=== PATIENT | male | born 1940 ===

== ENCOUNTER 2023-06-25 04:30 | Inpatient (IN) | payer MEDICARE ==
[2023-06-25] VITALS (12 sets, daily range): BP systolic 78–133; BP diastolic 54–92
[~2023-06-25] VITALS: Ht 180.3 cm; Wt 74.8 kg
[2023-06-25 05:23] LABS: BASOPHILS ABSOLUTE AUTO 0.04 K/mm3 (0.00-0.23); BASOPHILS PERCENT AUTO 0 % (0-2); EOSINOPHILS ABSOLUTE AUTO 0.02 K/mm3 (0.00-0.68); EOSINOPHILS PERCENT AUTO 0 % (0-6); Hematocrit 49.5 % (37.0-53.0); Hemoglobin 16.5 g/dL (13.5-17.5); IMMATURE GRAN PERCENT AUTO 1 % (0-1); LYMPHOCYTES ABSOLUTE AUTO 1.16 K/mm3 (0.84-5.20); LYMPHOCYTES PERCENT AUTO 12 % (21-46); MONOCYTES ABSOLUTE AUTO 0.26 K/mm3 (0.16-1.47); MONOCYTES PERCENT AUTO 3 % (4-13); Mean Corpuscular HGB Conc 33.3 g/dL (31.5-36.5); Mean Corpuscular Volume 96 fL (80-100); Mean Platelet Volume 10.8 fL (9.1-12.4); NEUTROPHILS PERCENT AUTO 84 % (41-73); Platelet Count 243 K/mm3 (150-400); RDW Coefficient Variation 13.7 % (11.7-14.2); RDW Standard Deviation 48.5 fL (35.1-46.3); Red Blood Cell Count 5.16 M/mm3 (4.30-5.90); White Blood Cell Count 9.88 K/mm3 (4.00-11.30)
[2023-06-25 05:52] LABS: Albumin, Blood 4.5 g/dL (3.4-5.0); Albumin/Globulin Ratio 1.2 (0.8-1.8); Bilirubin, Total 0.5 mg/dL (0.1-1.0); Bun/Creatinine Ratio 19.4 (12.0-20.0); Calcium, Blood 9.7 mg/dL (8.5-10.1); Creatinine, Blood 1.03 mg/dL (0.60-1.20); Globulin, Blood 3.7 g/dL (2.2-4.0); Potassium, Blood 3.4 mmol/L (3.5-5.5); Total Protein, Blood 8.2 g/dL (6.4-8.2)
[2023-06-25] MEDS ORDERED: TAMSULOSIN HCL0.4 M1 PO (06:47)
[2023-06-25 07:17] LABS: International Normalized Ratio 1.14; Prothrombin Time Results 11.9 Sec (9.7-11.5)
--- NOTE | 2023-06-25 07:18 | NUR ---
PT TO DAY SURGERY FROM ER. PT ON 15L NRB, NG TO LEFT NARES SUCTIONING BROWNISH LIQUID. PT ABD RIGID AND DISTENDED. PT ABLE TO ANSWER QUESTIONS, ALERT AND RESPONSIVE PT PRESENT AT BEDSIDED. NS INFUSING WIDE OPEN. VANCOMYCIN INFUSING VIA PUMP. PT CONTINUES CARDIAC MONITORING. CHARGE NURSE INFORMED OF PATIET CURRENT CONDITION.
--- NOTE | 2023-06-25 07:35 | NUR ---
REPEAT EKG COMPLETED. PT C/O NEEDING TO VOID. URINAL PROVIDED. PT UNABLE TO VOID. ITEMS OBTAINED TO PLACE KIM CATH AFTER SPEAKING WITH DR. MASON. INSTRUCTED TO WAIT UNTIL PT WENT TO SURGERY BY REJI FONTANEZ TO PLACE KIM. SUBHA FONTANEZ IN ROOM TO PLACE PT ON LEVOPHED DRIP. PT MENTATION UNCHANGED. LS DIMINISHED BUT CLEAR.
--- NOTE | 2023-06-25 07:41 | NUR ---
PT HAS 20G IV - R AC HAS VANCO INFUSING. LEFT FOREARM WITH A 20G WITH LR TKO AND LEVOPHED DRIP INFUSING. PT DENIES NEED FOR ANYTHING AT THIS TIME.
--- NOTE | 2023-06-25 07:44 | NUR ---
PT WAS HOOKED UP TO CONTINUOUS SUCTION ON ARRIVAL TO DAY SURGERY. BROWNISH LIQUID ON SUCTION TUBING ONLY.
[2023-06-25 08:52] LABS: PCO2 Arterial 69.3 mmHg (35-45); PO2 Arterial 138 mmHg (80-100)
[2023-06-25 09:19] LABS: PCO2 Arterial 55.3 mmHg (35-45); PO2 Arterial 240 mmHg (80-100)
[2023-06-25 09:20] LABS: pH Blood Arterial 7.05 (7.35-7.45)
[2023-06-25 09:25] LABS: Hematocrit 28.8 % (37.0-53.0); Hemoglobin 8.8 g/dL (13.5-17.5); Mean Platelet Volume 10.7 fL (9.1-12.4); Platelet Count 123 K/mm3 (150-400)
[2023-06-25 10:16] LABS: PCO2 Arterial 48.9 mmHg (35-45); PO2 Arterial 352 mmHg (80-100)
[2023-06-25 10:55] LABS: International Normalized Ratio 1.49
[2023-06-25 11:05] LABS: Prothrombin Time Results 15.3 Sec (9.7-11.5)
--- NOTE | 2023-06-25 11:35 | NUR ---
PT ARRIVED TO ICU 4 FROM OR AT 1050. INTUBATED, A-LINE TO L RADIAL WITH ARM BOARD IN PLACE. ON LEVOPHED AT 8MCG/MIN PERIPHERALLY. NO CENTRAL LINE, PICC LINE TO BE PLACED WHEN RN AVAILABLE. DR. MASON CONSULTED DR. KNOWLES IN PERSON. PT HAS WOUND VAC TO MID ABD WITH GOOD SUCTION. OUTPUT IS SEROUS. NG TUBE CLAMPED AND SECURED. PT RECEIVED PARALYTIC IN OR, NO SPONT MOVEMENT OF EXTREMITIES YET. FAMILY UPDATED AND AT BEDSIDE.
[2023-06-25 12:35] LABS: PCO2 Arterial 43.5 mmHg (35-45); PO2 Arterial 133 mmHg (80-100)
[2023-06-25 12:36] LABS: pH Blood Arterial 7.25 (7.35-7.45)
--- NOTE | 2023-06-25 13:10 | NUR ---
PICC LINE WAS PLACED. ALL PRESSORS MOVED TO CENTRAL LINE. VASOPRESSIN ADDED AND PROPOFOL STARTED. PT IS NODDING YES AND NO TO FAMILY'S QUESTIONS AND LIFTING ARMS UP OFF OF BED.
--- NOTE | 2023-06-25 13:48 | NUR ---
Pt. is intubated, somnilent and non responsive. Pts. daughter is present. Facilitate a life review with the daughter. Consider matters of urbano and belief as it reflects the Pt. Daughter expects spouse to return around dinner time. Will remain availble to the Pt. and family.
[2023-06-25 14:15] LABS: BASOPHILS ABSOLUTE AUTO 0.01 K/mm3 (0.00-0.23); BASOPHILS PERCENT AUTO 0 % (0-2); EOSINOPHILS PERCENT AUTO 0 % (0-6); Hematocrit 35.5 % (37.0-53.0); IMMATURE GRAN ABSOLUTE AUTO 0.09 K/mm3 (0.00-0.10); IMMATURE GRAN PERCENT AUTO 1 % (0-1); LYMPHOCYTES PERCENT AUTO 4 % (21-46); MONOCYTES PERCENT AUTO 4 % (4-13); Mean Corpuscular HGB 29.9 pg (26.0-34.0); Mean Corpuscular HGB Conc 33.8 g/dL (31.5-36.5); Mean Platelet Volume 10.3 fL (9.1-12.4); NEUTROPHILS ABSOLUTE AUTO 9.22 K/mm3 (1.96-9.15); NEUTROPHILS PERCENT AUTO 91 % (41-73); Platelet Count 212 K/mm3 (150-400); RDW Coefficient Variation 15.4 % (11.7-14.2); RDW Standard Deviation 48.8 fL (35.1-46.3); Red Blood Cell Count 4.01 M/mm3 (4.30-5.90); White Blood Cell Count 10.12 K/mm3 (4.00-11.30)
--- NOTE | 2023-06-25 14:15 | NUR ---
Spoke with ICU Clinical Coordinator Aleja and discussed case. Family may benefit from supportive visit. Met with family in ICU waiting room. Reviewed plan of care and answered questions. Offered supportive visit and allowed family to express concerns and fears. Continued supportive visit. Family requesting assistance with getting Pt started on OHP as Pt and spouse do not have any income and are concerned about medical bills. Instructed request will be relayed to RN Product Design Manager. Family expresses appreciation and report no other concerns at this time. Spoke with RN Product Design Manager Ruben and relayed families request. Palliative Care will remain available
[2023-06-25 14:22] LABS: Mean Corpuscular Volume 89 fL (80-100)
[2023-06-25 14:38] LABS: Magnesium, Blood 1.4 mg/dL (1.6-2.4)
[2023-06-25 14:58] LABS: Bilirubin, Total 0.6 mg/dL (0.1-1.0); Bun/Creatinine Ratio 20.3 (12.0-20.0); Calcium, Blood 8.2 mg/dL (8.5-10.1); Creatinine, Blood 0.84 mg/dL (0.60-1.20); Phosphorus, Blood 2.5 mg/dL (2.5-4.9); Potassium, Blood 4.2 mmol/L (3.5-5.5)
[2023-06-25 15:02] LABS: Albumin, Blood 2.3 g/dL (3.4-5.0); Globulin, Blood 2.2 g/dL (2.2-4.0); Total Protein, Blood 4.5 g/dL (6.4-8.2)
--- NOTE | 2023-06-25 17:03 | NUR ---
PT IS ABLE TO WAKE TO VOICE. APPROPRIATELY NODS HEAD YES AND NO TO QUESTIONS. PT ADAMANTLY REFUSES TO BE SWABBED FOR COVID. ON LEVOPHED AND VASOPRESSIN, LOW DOSE PROPOFOL FOR SEDATION. ABLE TO MOVE ARMS OFF OF BED BUT IS REDIRECTABLE AND NOT REACHING FOR LINES. FAMILY HAS STAYED AT BEDSIDE SINCE ADMIT AND HELPING KEEP PT INFORMED. WOUND VAC TO MID ABD THAT HAS GOOD SEAL AND SUCTION. SEROUS OUTPUT. FENTANYL FOR ABD PAIN.
--- NOTE | 2023-06-25 19:15 | NUR ---
ASSUMPTION OF CARE: RECEIVED REPORT FROM YANNA FONTANEZ. PT INTUBATED AND SEDATED. RESPONDS TO VERBAL STIMULI. ABLE TO FOLLOW COMMANDS AND SHAKE HEAD YES AND NO TO QUESTIONS. VENT SETTINGS AC/VC 20/450/5/70%. SPO2 >90%. LUNG SOUNDS CLEAR. PROPOFOL INFUSING AT 25 MCG/MIN. ARTERIAL LINE TO LEFT RADIAL, NOT SUTURED IN PLACE. TAPED DOWN AND ARMBOARD IN PLACE. LEVOPHED INFUSING AT 14 MCG/MIN, TITRATED TO MAINTAIN MAP >65. VASO INFUSING AT 0.04 UNITS/MIN. CARDIAC MONITORING IN PLACE, SR WITH RATE 60'S-70'S. NG TUBE IN PLACE, CLAMPED AT THIS TIME. WOUND VAC IN PLACE TO MID ABDOMEN DRAINING SEROSANGINOUS FLUID. KIM IN PLACE, FOR CRITICAL I&O, PATENT AND DRAINING YELLOW URINE TO GRAVITY. DAUGHTER AT BEDSIDE, UPDATED TO PLAN OF CARE. PT AWAITING TRANSFER TO [facility].
--- NOTE | 2023-06-25 23:06 | NUR ---
TRANSFER TO [facility] CALLED WITH A ROOM FOR PT. PLANS MADE WITH [employer] TO FLY PT UP TO [place]. REPORT GIVEN TO TARI CHARGE NURSE AT [facility]. PT LEFT WITH PROPOFOL INFUSING AT 25MCG/KG/MIN; LEVOHPED INFUSING AT 14MCG/MIN; VASOPRESSIN INFUSING AT 0.04UNITS/MIN; LR INFUSING AT 150ML/HR. ART LINE IN PLACE AND PATENT; PICC TO ELIZABET IN PLACE AND PATENT. WOUND VAC SENT WITH PT. PT LEFT WITH [facility]SPORT AT 2300. CALL MADE TO [facility] TO GIVE ETA. PT AND DAUGHTER STATED THAT THEY WERE HEADED HOME AND WOULD DRIVE UP TO [place] TOMORROW.
== END 2023-06-25 23:00 | disposition short-term general hospital (02) | DRG 853 ==
LOC: ER 04:30 → ICUE 06:58 → SURS 06:58 → ICUE 07:02
PROVIDERS: Anesthesiology; Emergency Medicine; Internal Medicine Critical Care Medicine; Surgery; ADMIT Internal Medicine
PROC: 0BH17EZ Insertion of Endotracheal Airway into Trachea, Via Natural or Artificial Opening (ICD-10-PCS; 2023-06-25)
PROC: 30233N1 Transfusion of Nonautologous Red Blood Cells into Peripheral Vein, Percutaneous Approach (ICD-10-PCS; 2023-06-25)
PROC: 30233P1 Transfusion of Nonautologous Frozen Red Cells into Peripheral Vein, Percutaneous Approach (ICD-10-PCS; 2023-06-25)
PROC: 3E033XZ Introduction of Vasopressor into Peripheral Vein, Percutaneous Approach (ICD-10-PCS; 2023-06-25)
PROC: 4A133R1 Monitoring of Arterial Saturation, Peripheral, Percutaneous Approach (ICD-10-PCS; 2023-06-25)
PROC: 02HV33Z Insertion of Infusion Device into Superior Vena Cava, Percutaneous Approach (ICD-10-PCS; 2023-06-25)
PROC: 0DB60ZZ Excision of Stomach, Open Approach (ICD-10-PCS; principal; 2023-06-25 07:30)
PROC: 07BP0ZZ Excision of Spleen, Open Approach (ICD-10-PCS; 2023-06-25 07:30)
PROC: 5A1935Z Respiratory Ventilation, Less than 24 Consecutive Hours (ICD-10-PCS; 2023-06-25 07:30)
DX: A41.9 Sepsis, unspecified organism (principal); J96.01 Acute respiratory failure with hypoxia; K63.1 Perforation of intestine (nontraumatic); K65.0 Generalized (acute) peritonitis; R65.21 Severe sepsis with septic shock; K66.8 Other specified disorders of peritoneum; E86.0 Dehydration; D73.5 Infarction of spleen; N40.0 Benign prostatic hyperplasia without lower urinary tract symptoms; Z98.890 Other specified postprocedural states; Z79.899 Other long term (current) drug therapy; Z90.49 Acquired absence of other specified parts of digestive tract; Q43.0 Meckel's diverticulum (displaced) (hypertrophic); Z87.891 Personal history of nicotine dependence
CPT/HCPCS: 36415; 36430; 36569; 71045; 74018; 74177; 80053; 82310; 82330; 82803; 83605; 83690; 83735; 84100; 85014; 85018; 85025; 85049; 85384; 85610; 85730; 86850; 86900; 86901; 86920; 87040; 87070; 87205; 88305; 88307; 88312; 93005; 93010; 94002; 96365-59; 96375-59; 99285-25; C1751; J0696; J1644; J2001; J2250; J2543; J2704; J3010; J3370; J3475; J7030; J7050; J7060; J7120; P9016; P9037; P9059; Q9967

== ENCOUNTER → 2023-08-19 | Outpatient (CLI) | payer MEDICARE ==
[~2023-08-19] MED LIST: TAMSULOSIN HCL0.4 M1 PO
== END ==
LOC: LAB 09:41 → LAB SHORT 09:41
DX: D04.39 Carcinoma in situ of skin of other parts of face (principal); C44.519 Basal cell carcinoma of skin of other part of trunk
CPT/HCPCS: 88305

== ENCOUNTER → 2023-09-22 | Outpatient (CLI) | payer OTHER | LOC: LAB 08:41 → LAB SHORT 08:41 | DX: C44.519 Basal cell carcinoma of skin of other part of trunk (principal) | CPT/HCPCS: 88305 ==

== ENCOUNTER → 2024-03-07 | Outpatient (CLI) | payer OTHER ==
[2024-03-07 17:23] LABS: Source, Urine Clean Catch
[2024-03-07 17:40] LABS: Bacteria Not Seen /hpf; Red Blood Cells, Urine TNTC /hpf (0-2); Squamous Epithelial Cells Not Seen /hpf (Few)
[2024-03-07 17:41] LABS: Amorphous Heavy (0-Heavy)
== END ==
LOC: LAB 16:36 → LAB SHORT 17:21
PROVIDERS: Physician Assistant
DX: R31.9 Hematuria, unspecified (principal)
CPT/HCPCS: 81015

== ENCOUNTER → 2024-03-07 | Outpatient (CLI) | payer OTHER ==
[2024-03-07 18:17] LABS: BASOPHILS ABSOLUTE AUTO 0.05 K/mm3 (0.00-0.23); BASOPHILS PERCENT AUTO 1 % (0-2); EOSINOPHILS ABSOLUTE AUTO 0.11 K/mm3 (0.00-0.68); EOSINOPHILS PERCENT AUTO 2 % (0-6); Hematocrit 39.1 % (37.0-53.0); Hemoglobin 13.1 g/dL (13.5-17.5); IMMATURE GRAN ABSOLUTE AUTO 0.02 K/mm3 (0.00-0.10); IMMATURE GRAN PERCENT AUTO 0 % (0-1); LYMPHOCYTES ABSOLUTE AUTO 2.08 K/mm3 (0.84-5.20); LYMPHOCYTES PERCENT AUTO 29 % (21-46); MONOCYTES ABSOLUTE AUTO 0.59 K/mm3 (0.16-1.47); MONOCYTES PERCENT AUTO 8 % (4-13); Mean Corpuscular HGB Conc 33.5 g/dL (31.5-36.5); Mean Corpuscular Volume 95 fL (80-100); Mean Platelet Volume 10.7 fL (9.1-12.4); NEUTROPHILS ABSOLUTE AUTO 4.38 K/mm3 (1.96-9.15); NEUTROPHILS PERCENT AUTO 61 % (41-73); Platelet Count 263 K/mm3 (150-400); RDW Coefficient Variation 17.2 % (11.7-14.2); RDW Standard Deviation 59.7 fL (35.1-46.3); White Blood Cell Count 7.23 K/mm3 (4.00-11.30)
[2024-03-07 18:27] LABS: Albumin, Blood 3.2 g/dL (3.4-5.0); Albumin/Globulin Ratio 0.8 (0.8-1.8); Bilirubin, Total 0.5 mg/dL (0.1-1.0); Bun/Creatinine Ratio 21.4 (12.0-20.0); Calcium, Blood 8.9 mg/dL (8.5-10.1); Creatinine, Blood 1.12 mg/dL (0.60-1.20); Potassium, Blood 4.2 mmol/L (3.5-5.5); Total Protein, Blood 7.2 g/dL (6.4-8.2)
== END ==
LOC: LAB 18:12 → LAB SHORT 18:12
PROVIDERS: Physician Assistant
DX: R31.9 Hematuria, unspecified (principal)
CPT/HCPCS: 80053; 85025; 87086